=== PATIENT | male | born 1945 | race Caucasian/White ===

== ENCOUNTER → 2019-03-24 09:27 | Outpatient (BNVA) | payer MEDICARE, SELFPAY | PROVIDERS: Family Provider Family Medicine; PCP Family Medicine; Referring Provider Family Medicine; Visit Provider Specialist | DX: M17.11 Unilateral primary osteoarthritis, right knee (principal); M25.561 Pain in right knee | CPT/HCPCS: 73560; 73565 ==

== ENCOUNTER → 2019-06-21 09:24 | Outpatient (BNVA) | payer MEDICARE, SELFPAY | PROVIDERS: Family Provider Family Medicine; PCP Family Medicine; Visit Provider Specialist | DX: M25.569 Pain in unspecified knee (principal); M23.303 Other meniscus derangements, unspecified medial meniscus, right knee; M23.304 Other meniscus derangements, unspecified medial meniscus, left knee | CPT/HCPCS: 73560; 73565 ==

== ENCOUNTER → 2019-08-16 15:08 | Outpatient (BNVA) | payer MEDICARE, SELFPAY | PROVIDERS: Family Provider Family Medicine; PCP Family Medicine; Visit Provider Specialist | DX: M17.0 Bilateral primary osteoarthritis of knee (principal); Z01.812 Encounter for preprocedural laboratory examination | CPT/HCPCS: 73562; 81001; 87081 ==

== ENCOUNTER 2019-09-03 09:22 | Outpatient (CLI) | payer MEDICARE, SELFPAY ==
--- NOTE | 2019-09-03 09:47 | PC.NURSE ---
Patient identification verified with name and date of . PPE to include faceshield, N95, gown and gloves. Specimen collected, labeled and signed into lab at this time.
[2019-09-04 18:36] LABS: Coronavirus Lab Test PTC SEE REPORT
== END 2019-09-03 09:23 | disposition home or self-care (01) ==
LOC: LAB 09:22
PROVIDERS: PCP Family Medicine; Visit Provider Specialist
DX: Z11.59 Encounter for screening for other viral diseases (principal)
CPT/HCPCS: 87635

== ENCOUNTER 2019-09-07 11:05 | Observation (INO) | payer MEDICARE, SELFPAY ==
--- NOTE | 2019-09-02 11:08 | ECG_ITS ---
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 Measurements Intervals [place] Rate: 57 P: 9 MT: 154 QRS: -3 QRSD: 105 T: 50 QT: 402 QTc: 394 Interpretive Statements SINUS BRADYCARDIA MODERATE VOLTAGE CRITERIA FOR LVH, CONSIDER NORMAL VARIANT [MEETS CRITERIA IN ONE OF: R(aVL), S(V1), R(V5), R(V5/V6)+S(V1)] No previous ECG available for comparison Electronically Signed On 09-03-2019 1:37:56 CDT by Vilma Walden M.D. [id number]
[2019-09-02 11:16] VITALS: BMI 34.8
--- NOTE | 2019-09-02 11:56 | ANES.PREANE2 ---
Pre-Anesthetic Assessment Pre-Anesthetic Assessment: Height/Weight: Height 1.75 m Weight 107.048 kg Preop Diagnosis: Right knee osteoarthritis Proposed Procedure: Operation Date: 09/07/19 07:00 Proposed Procedures p Total Knee Arthroplasty/88471 M17.0(Right) - Sherrie Chen MD Familial anesthetic complications: None Social: Social History: No alcohol and No tobacco Exam: Pre-Anes Outpt Exam: alert, oriented x 3, clear to auscultation bilaterally and regular rate & rhythm Airway: Cervical ROM: WNL MP: 4 Dentition: Chipped, Partials and Full Additional comments: large neck circumference Pulmonary: Pulmonary: Sleep apnea (cpap) CV/HEM: CV/HEM: CAD (3 stents (4 yrs ago) - on baby aspirin) and HTN GI: GI: GERD Metabolic: Metabolic: DM and Morbid obesity Musc/skel: Musc/skel: OA/DJD Neuropsych: Neuropsych: None reported Anesthetic Plan: ASA status: 3 Anesthesia: General and Regional (specify below) Risk of > 500 ml blood loss (7ml/kg in children): Yes, adequate IV access and fluids planned PFSH Anesthesia PFSH: Medical History Atherosclerosis of [place] coronary artery of [place] heart without angina pectoris CHF (congestive heart failure) GERD (gastroesophageal reflux disease) Hyperlipidemia Hypertension Statin intolerance Type 2 diabetes mellitus with hyperglycemia, with long-term current use of insulin Surgical History Stented coronary artery Family History Denies family history of Diabetes CAD (coronary artery disease) Clotting disorder Dementia Hyperlipidemia Psychiatric illness Chronic kidney disease (CKD) Suicide Anesthesia complication Bleeding disorder Family history of premature coronary artery disease Lung disease Cancer Hypertension Stroke Social History Smoking and tobacco status: former smoker Alcohol intake: current Alcohol intake frequency: few times a month Household members: spouse Marital status: Current occupational status: retired Data Anesthesia Cardiac Studies: No Data to Display
[2019-09-02 15:29] LABS: Basophils # 0.1 10^3/uL (0.0-0.1); Eosinophils # 0.2 10^3/uL (0.0-0.8); Eosinophils % 3.8 %; Hematocrit 46.1 % (42.0-52.0); Hemoglobin 15.1 g/dL (11.7-16.6); Lymphocytes # 2.2 10^3/uL (0.8-4.8); Lymphocytes % 37.3 %; Mean Corpuscular HGB Conc 32.8 g/dL (30.0-36.0); Mean Corpuscular Hemoglobin 31.2 pg (28.0-34.0); Mean Corpuscular Volume 95.2 fL (80-94); Mean Platelet Volume 10.7 fL (7.4-10.4); Monocytes # 0.5 10^3/uL (0.2-0.9); Monocytes % 9.1 %; Neutrophils # 2.81 10^3/uL (1.8-7.7); Neutrophils % 47.9 %; Nucleated Red Blood Cells % 0 %; Platelet Count 325 10^3/cmm (130-400); Red Blood Count 4.84 10^6/uL (4.1-5.3); Red Cell Distribution Width 14.1 % (12.1-15.1); White Blood Count 5.9 10^3/uL (4.0-10.0)
[2019-09-07] VITALS (24 sets, daily range): BP systolic 105–160; BP diastolic 59–83; PULSE 58–94; RESP 12–18; TEMP 36.2–37.2; O2SAT 92–97
[2019-09-07] MEDS: CELEcoxib 200 mg Capsule 400 MG PO (06:28)
[2019-09-07] MEDS: sodium chloride 0.9% 1,000 ML 30 ML IV (06:29)
[2019-09-07 06:38] LABS: Glucose Point of Care 254 mg/dL (70-110)
--- NOTE | 2019-09-07 06:41 | P.ANESUD_ITS ---
Pre-Anesthetic Update Pre-Anesthetic Assessment: Date of Surgery/Procedure: 09/07/19 Preop Odilia gnosis: Right knee osteoarthritis Proposed Procedure: Operation Date: 09/07/19 07:35 Proposed Procedures p Total Knee Arthroplasty/61773 M17.0(Right) - Sherrie Chen MD Any changes to Pre-Anesthetic Assessment?: No Last Intake: Intake Last Liquid Date 09/06/19 Last Liquid Time 21:00 Last Solid Date 09/06/19 Last Solid Time 19:00 Labs Last 48hrs: Laboratory Results - last 48 hr 09/07/19 06:27 POC Glucose 254 Vitals: Temperature 97.2 F L 09/07/19 06:11 Temperature Source Temporal Artery S can 09/07/19 06:11 Pulse Rate 58 L 09/07/19 06:11 Respiratory Rate 18 09/07/19 06:11 Blood Pressure 149/83 09/07/19 06:11 Blood Pressure Li n 105 09/07/19 06:11 Pulse Oximetry 95 09/07/19 06:11 Oxygen Delivery Me thod 09/07/19 06:11 Exam: Pre-Anes Outpt Exam: alert, oriented x 3, clear to auscultation bilaterally and regular rate & rhythm Cardiac Studies: No Data to Display
--- NOTE | 2019-09-07 06:55 | W.PM.OPSUD ---
Surgery/Procedure H&P Update DATE OF PROCEDURE: September 07, 2019 DATE H&P PERFORMED: 08/16/19 H&P UPDATE INFORMATION: I have reviewed H&P completed within last 30 days, I have examined patient prior to procedure and H&P is in [facility] EMR on date indicated PREOP DIAGNOSIS: Right knee osteoarthritis PLANNED PROCEDURE: Operation Date: 09/07/19 07:35 Proposed Procedures p Total Knee Arthroplasty/74488 M17.0(Right) - hSerrie Chen MD Related Problem List Diagnoses (1) Primary osteoarthritis of right knee:
--- NOTE | 2019-09-07 07:02 | ANES.PROC ---
Anesthesia Procedures Procedure/Date: 09/07/19 Nerve Block ^: Nerve Block 1: Main Anesthesia: general anesthesia Time Out Performed: Yes Consent: requested by attending/covering physician, from patient, risks and benefits reviewed and patient agrees to proceed Nerve block location: adductor canal (R) Anesthesia monitors applied: pulse oximetry and oxygen Nerve block position: supine Anesthetic Used: ropivicaine 0.5% and with decadron (4 mg) Amount of anesthesia used (mL): 30 Ultrasound used to: recognize landmarks, visualize and ID brachial plexus, visualize and ID interscalene groove and visualize and ID femerol nerve Nerve Stimulator Used?: No Interscalene/Femoral BLK: 4 stimuplex 21 g needle used for position and inplane approach, visualize local anesthetic spread and no vascular puncture identified Injection: neg aspiration of heme Patient Tolerated Procedure: well Complications: none
[2019-09-07] MEDS: midazolam 1 mg/mL INJ 5 ML 5 MG IVP (07:03)
[2019-09-07] MEDS: insulin regular-human 100 units/1 mL 5 UNIT IV (07:19)
[2019-09-07] MEDS: vancomycin 1,000 MG SDV 1000 MG XX (08:40)
[2019-09-07] MEDS: ceFAZolin 1,000 mg SDV 1000 MG IRRIGATION ×2 (08:42)
--- NOTE | 2019-09-07 10:31 | PM.OP ---
Operative Report Date of procedure: September 07, 2019 Pre-op Diagnosis: Right knee osteoarthritis Post-op diagnosis: same Post-op Findings: Severe degenerative osteoarthritis right knee with varus deformity Procedure Done: Right total knee arthroplasty utilizing the following components: The [place] [employer] total knee system with a size 4 right posterior stabilized press-fit femoral component, a size 5 press-fit tibial component and a size 5 x 16 posterior stabilized tibial insert with an asymmetric 35 x 10 mm patella Specimens removed/disposition: Bone, disposed of Pathology: none sent Surgeon: Sherrie Chen Precision Grinder External: Umang Haley Anesthesia: General (Intubated ASA 3 with preoperative regional block) Estimated blood loss (mL): 50 Tourniquet time (min): 98 Tourniquet time: at 250 mmHg IV fluids (mL): 500 Urine output (mL): 350 Complications: None Findings: Severe DJD with complete obliteration of cartilage over medial femoral condyle Condition: stable Disposition: PACU (Then to floor for postoperative rehabilitation and pain management) Brief History: This 74-year-old man presented with complaints of severe right knee pain. He is having significant impact in her activities of daily living from her right knee. He wishes to proceed with total knee arthroplasty. Risks and complications are explained to him. Consents are signed. Questions are answered. Procedure: The patient was brought to the operating theater, and after undergoing adequate general intubated anesthesia with supplemental regional block, the right lower extremity was prepped with Dura-Prep and draped in usual fashion following placement of a tourniquet high on the leg. The leg was then draped free. Following prepping and draping, the leg was exsanguinated, and the tourniquet was elevated to 250 mmHg for a total tourniquet time of 98 minutes. Prior to elevation of the tourniquet, but following exposure of the site of surgery, a surgical pause was performed. At the time of the surgical pause, we confirmed the site and side of surgery. Additionally, we confirmed the appropriate and timely administration of preoperative antibiotics, Ancef 2 g and transexemic acid 1 g each pre and post op. The patient is consented to avoid all blood products. The availability of equipment was confirmed, and the patient's identity was verbalized as well. Following the surgical pause, an incision was made centering over the patella continuing proximally and distally as necessary to allow access to the knee joint. Dissection continued through skin and soft tissues using a scalpel. Hemostasis was obtained using electrocautery. The skin incision was followed by a median parapatellar arthrotomy. The leg was extended and the patella was everted. Following this, the leg was returned to flexed position. The distal femur was exposed and a drill hole was made in this for placement of the distal femoral jig. The distal femoral jig was set at 5? of valgus. The distal femoral cutting block was then placed in appropriate position, and an logan wing was used to confirm an appropriate amount of distal femur would be resected. The distal femoral resection was accomplished with 8 mm of bone being resected distally. After the distal femoral resection had been accomplished, the femur was measured and it measured a size 4. Medial lateral dimension also measured a size 4-5. A size 4 femoral cutting block was placed in position, and we were then able to accomplish the anterior, posterior and chamfer cuts. This jig was then removed and the notch guide was placed in position. With the notch guide in appropriate position, the notch was excised including resection of the anterior and posterior cruciate ligaments. This notch was to allow for the posterior stabilized femoral component. At this point, the femur was prepared and attention was directed to the proximal tibia. The posterior knee retractor was placed along with medial and lateral retractors. Further resection of the menisci was accomplished as we had better visualization. A complete meniscectomy was performed both medially and laterally with care being taken to protect the popliteus. Retractors were then placed so that the proximal tibia was well visualized. A drill hole was then made in the tibia for placement of the intramedullary guide. This guide was placed so that approximately 2 mm of bone would be resected from the deficient medial tibial plateau. The intramedullary guide was utilized supplemented with an extramedullary guide to assure appropriate alignment for the proximal tibial resection. The proximal tibial jig was then evaluated, pinned in position, and the proximal tibial resection was accomplished without difficulty. The jig was removed and the proximal tibia was measured. It measured a size 5. A trial reduction was accomplished with a11 mm insert. Posterior release was required both before and after trial reduction. A medial release was required as well. We increased through a size 13 mm insert to a final size 16 mm insert. We then had good balance to the knee with full extension and excellent varus valgus stability. The femoral component was placed in position for the trial reduction, and the knee was placed through range of motion. There was excellent stability with excellent varus-valgus alignment with appropriate patellar tracking. This was felt to be the appropriate size insert. There was full extension and flexion without lift off and the rotation of the tibia was marked. Alignment was checked from the hip to the ankle, and this was noted to be appropriate as well. Attention was then directed to the patella. The patella was measured with a caliper. We resected sufficient patella to leave approximately 15 mm of patella remaining. Measurements of the patella then indicated that a size asymmetric 35 mm x 10 mm was the appropriate patellar size. We then placed the jig to drill for the 3 pegs of the press-fit patella, and these drill holes were made without incident. A trial patella was then placed and the knee was placed through range of motion. The patella was noted to track nicely without evidence of subluxation. The femur was prepared for a press-fit femur by drilling 2 holes for the femoral pegs. All trial components were subsequently removed. The tibial tray was then pinned into position, and we broached the tibia for the stem of the tibial component. Subsequently, 4 drill holes were made for placement of the press-fit tibia. This was accomplished without difficulty. Care was taken to assure appropriate rotation of the tibia as well as appropriate position on the proximal tibia. The tibial tray was completely seated on the proximal tibia. Following broaching, the tibial guide was removed, and all surfaces were copiously irrigated. The surfaces were then dried and a bone plug was placed into the distal femur. Exparel was also injected at this point. The Tritanium tibia was impacted into position. The beaded femur was then impacted into position in a cementless fashion. The tibial insert was placed. The patella was pressed into position with a patellar clamp. The knee was irrigated with 20 mL of Betadine and 500 mL of normal saline, and this was allowed to remain in the knee for 3-4 minutes. This was allowed to remain in the knee for 3 full minutes. The knee was then copiously irrigated and suctioned dry. Attention was then directed to closure. Closure was accomplished with 0 Vicryl in the fascial tissues, 2-0 Monocryl was used in the subcutaneous tissues, and the skin was closed with skin bruce followed by Exofin. A sterile dressing was then placed consisting of Telfa, 4 x 4's, ABDs, sterile soft roll, and an Nelson wrap. The patient was returned the Recovery Room in a satisfactory condition. X-rays were obtained there. The patient will be discharged to the floor for postoperative rehabilitation and pain management. He'll be under observation status with plans to discharge home with home health. Associated Problem List Diagnoses (1) Primary osteoarthritis of right knee:
--- NOTE | 2019-09-07 10:39 | SUR.PHASEI ---
1037- ORAL AIRWAY OUT, SIMPLE MASK AT 10LPM, SAT 97%
--- NOTE | 2019-09-07 10:43 | XRR_ITS ---
PROCEDURE INFORMATION: Exam: XR Right Knee Exam date and time: 09/07/2019 11:00 AM Age: 74 years old Clinical indication: Condition or disease; Joint replacement status; Knee; Other complication; Right; Prior surgery; Surgery date: Post-operative (0-2 days); Additional info: Status post right total knee arthroplasty TECHNIQUE: Imaging protocol: XR Right knee. Views: 1 or 2 views. COMPARISON: CR (LOW EXM, ) 08/16/2019 3:12 PM FINDINGS: Bones/joints: No postoperative complication in the setting of arthroplasty. Anatomic alignment. Soft tissues: Soft tissue calcifications, subcutaneous emphysema, skin bruce. Vasculature: Vascular calcification. Other findings: Postoperative intra-articular air. XR/XR knee RT 1-2V 19127 IMPRESSION: No postoperative complication in the setting of arthroplasty.
[2019-09-07] MEDS: oxyCODONE 5 mg IR Tab/Cap PO ×3 (11:37→22:27)
[2019-09-07] MEDS: chlorhexidine gluconate 0.12% Btl 473 mL 30 ML MUCOUS MEM ×3 (15:47→21:20)
[2019-09-07] MEDS: calcium carbonate 500 mg Chew Tablet 1000 MG PO (18:28)
[2019-09-07] MEDS: iron polysaccharide complex 150 mg Capsule PO (18:29)
[2019-09-07] MEDS: metformin 500 mg Tablet 1000 MG PO (18:29)
[2019-09-07] MEDS: sennosides-docusate Tablet 2 TAB PO (18:29)
[2019-09-07] MEDS: CELEcoxib 200 mg Capsule PO (18:29)
[2019-09-07 21:13] LABS: Glucose Point of Care 391 mg/dL (70-110)
[2019-09-08] VITALS (9 sets, daily range): BP systolic 130–149; BP diastolic 60–79; PULSE 68–85; RESP 16–18; TEMP 36.7–37.1; O2SAT 84–96
[2019-09-08] MEDS: oxyCODONE 5 mg IR Tab/Cap PO ×4 (03:56→16:26)
[2019-09-08 04:30] LABS: Basophils % 0.1 %; Eosinophils # 0.1 10^3/uL (0.0-0.8); Hematocrit 38.6 % (42.0-52.0); Hemoglobin 13.1 g/dL (11.7-16.6); Lymphocytes # 1.7 10^3/uL (0.8-4.8); Lymphocytes % 19.7 %; Mean Corpuscular HGB Conc 33.9 g/dL (30.0-36.0); Mean Corpuscular Hemoglobin 32.4 pg (28.0-34.0); Mean Corpuscular Volume 95.5 fL (80-94); Mean Platelet Volume 9.9 fL (7.4-10.4); Monocytes % 11.7 %; Neutrophils # 5.87 10^3/uL (1.8-7.7); Neutrophils % 66.9 %; Nucleated Red Blood Cells % 0 %; Platelet Count 244 10^3/cmm (130-400); Red Blood Count 4.04 10^6/uL (4.1-5.3); Red Cell Distribution Width 14.2 % (12.1-15.1); White Blood Count 8.8 10^3/uL (4.0-10.0)
[2019-09-08 04:47] LABS: Anion Gap 16.4 (5-19); Blood Urea Nitrogen 25 mg/dL (8-23); Calcium 9.6 mg/dL (8.5-10.5); Carbon Dioxide 27 mmol/L (22-29); Chloride 95 mmol/L (98-107); Glucose 153 mg/dL (65-115); Osmolality Calculated 280 mOsm/kg (285-295); Potassium 3.4 mmol/L (3.5-5.1); Sodium 135 mmol/L (136-145)
[2019-09-08] MEDS: CELEcoxib 200 mg Capsule PO (06:14)
[2019-09-08] MEDS: ondansetron 2 mg/ML SDV 2 mL 4 MG IVP (06:21)
[2019-09-08 06:27] LABS: Glucose Point of Care 205 mg/dL (70-110)
--- NOTE | 2019-09-08 06:45 | ECG_ITS ---
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 Measurements Intervals [place] Rate: 78 P: 1 MN: 186 QRS: -6 QRSD: 114 T: 34 QT: 378 QTc: 433 Interpretive Statements SINUS RHYTHM INCOMPLETE RIGHT BUNDLE BRANCH BLOCK [90+ ms QRS DURATION, TERMINAL R IN V1/V2, 40+ ms S IN I/aVL/V4/V5/V6] VOLTAGE CRITERIA FOR LVH [MEETS CRITERIA IN ONE OF: R(aVL), S(V1), R(V5), R(V5/V6)+S(V1)] NONSPECIFIC ST & T-WAVE ABNORMALITY Compared to ECG 09/02/2019 11:29:59 Incomplete right bundle-branch block now present T-wave abnormality now present Sinus bradycardia no longer present Electronically Signed On 09-08-2019 20:30:14 CDT by Vilma Walden M.D. [id number]
[2019-09-08 07:38] LABS: Troponin T (5th) Once 16 ng/L (0-15)
--- NOTE | 2019-09-08 07:48 | XR_ITS ---
WS: [id number] PORTABLE CHEST HISTORY: chest pain COMPARISON: None available. Slight elevation of the RIGHT hemidiaphragm. Lungs are clear. Normal vasculature. No pleural effusion or pneumothorax. Cardiac size: Mildly enlarged cardiac silhouette. Mediastinum/Aorta: Mild atherosclerosis aorta. No osseous abnormality seen. XR/XR chest 1V portable 13230 IMPRESSION: Ectatic thoracic aorta. No acute cardiopulmonary disease.
[2019-09-08] MEDS: iron polysaccharide complex 150 mg Capsule PO (08:26)
[2019-09-08 08:41] LABS: Troponin(5th) Baseline 17 ng/L (0-15)
[2019-09-08] MEDS: atenolol 50 mg Tablet 25 MG PO (08:57)
[2019-09-08] MEDS: multivitamin therapeutic Tablet 1 TAB PO (08:57)
[2019-09-08] MEDS: chlorthalidone 25 mg Tablet PO (08:57)
[2019-09-08] MEDS: losartan 50 mg Tablet 100 MG PO (08:57)
[2019-09-08] MEDS: metformin 500 mg Tablet 1000 MG PO (08:57)
[2019-09-08] MEDS: cholecalciferol (vitamin D3) 1,000 unit Tablet 1000 UNIT PO ×2 (08:57→09:05)
[2019-09-08] MEDS: aspirin 325 mg EC Tablet PO (08:58)
[2019-09-08] MEDS: insulin glargine 100 units/1 mL 40 UNIT SUBCUT (09:04)
[2019-09-08] MEDS: sennosides-docusate Tablet 2 TAB PO (09:06)
[2019-09-08] MEDS: chlorhexidine gluconate 0.12% Btl 473 mL 30 ML MUCOUS MEM ×2 (09:06→12:26)
[2019-09-08] MEDS: calcium carbonate 500 mg Chew Tablet 1000 MG PO (09:09)
--- NOTE | 2019-09-08 09:47 | ECG_ITS ---
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 Measurements Intervals [place] Rate: 89 P: -26 NM: 150 QRS: 5 QRSD: 106 T: 51 QT: 357 QTc: 436 Interpretive Statements SINUS RHYTHM INCOMPLETE RIGHT BUNDLE BRANCH BLOCK [90+ ms QRS DURATION, TERMINAL R IN V1/V2, 40+ ms S IN I/aVL/V4/V5/V6] MODERATE VOLTAGE CRITERIA FOR LVH, CONSIDER NORMAL VARIANT [MEETS CRITERIA IN ONE OF: R(aVL), S(V1), R(V5), R(V5/V6)+S(V1)] NONSPECIFIC ST & T-WAVE ABNORMALITY INTERPRETATION BASED ON A DEFAULT AGE OF 40 YEARS Compared to ECG 09/08/2019 07:04:29 No significant changes Electronically Signed On 09-08-2019 20:37:58 CDT by Vilma Walden M.D. [id number]
--- NOTE | 2019-09-08 10:05 | P.CONIM_ITS ---
Providers/Reason For Consult Consulting Physican/Specialty*: Carie Melendez, hospitalist Reason for Consult*: Chest pain Requesting Physcian: Dr. Sherrie Chen, orthopedic surgery Attending Physician: Sherrie Chen MD Primary Care Provider: Maria C Ramachandran DO History of Present Illness History of Present Illness Dennis Blankenship is a 74 year old male with a past medical history of hypertension, coronary artery disease, obstructive sleep apnea, hyperlipidemia that presented to the hospital for total knee arthroplasty. Patient reports that he had been doing well prior to surgery with no concerns. He stated that he follows with cardiology in the outpatient setting, last visit was 07/21/2019 for preoperative visit. Had a negative stress test in the fall 2018. Has not had any chest pain with exertion, no dyspnea on exertion. Patient reported that he was laying in bed this morning when he began having some discomfort in the center of his chest that was slightly improved with belching, he stated that he also had a burning s ensation. He reports that he did have some discomfort between his shoulder blades at the same time. He did not have any worsening with exertion, no other aggravating or alleviating factors. He states that he has had some increased gas. Denies any abdominal pain or bloating, reported that he felt that he needed to have a bowel movement this morning but has not, has been passing some flatus. He denies any lightheadedness or dizziness, no diaphoresis. Patient reports having a history of coronary artery disease but is never had a heart attack. Patient denies any recent illness, no fevers or chills Review of Systems Const: Denies: fever(s) or chills Eyes: Denies: change in vision ENMT: Denies: nasal congestion Card: Reports: chest pain; Denies: palpitations or edema Resp: Denies: dyspnea, productive cough or hemoptysis GI: Reports: heartburn and belching; Denies: abdominal pain, nausea, vomiting, diarrhea, constipation, hematochezia or melena : Denies: dysuria or hematuria Musc: Reports: extremity pain (postoperative); Denies: muscle cramps Skin/Breast: Denies: rash or new lesions Neuro: Denies: headache(s) or dizziness Psych: Denies: anxiety or depression Endo: Denies: polyuria or hot flashes Leonard/Lymph: Denies: easy bruising or easy bleeding Meds/Allergies Home Medications and Allergies Home Medications Medication Instructions Recorded Confirmed Last Taken Type allopurinol 300 mg tablet 300 mg PO DAILY 03/24/19 09/07/19 09/05/19 History aspirin 81 mg tablet,delayed 81 mg PO DAILY 03/24/19 09/07/19 09/01/19 History release chlorthalidone 25 mg tablet 25 mg PO DAILY 03/24/19 09/07/19 09/06/19 History cholecalciferol (vitamin D3) 25 1,000 unit PO DAILY 03/24/19 09/07/19 09/06/19 History mcg (1,000 unit) capsule insulin glargine 100 unit/mL (3 40 unit SUBCUT DAILY 03/24/19 08/17/19 09/06/19 18:00 History mL) subcutaneous pen 1/2 losartan 100 mg tablet 100 mg PO DAILY 03/24/19 09/07/19 09/06/19 20:00 History metformin 1,000 mg tablet 1,000 mg PO BID 03/24/19 09/07/19 09/06/19 07:00 History multivitamin with iron 1 tab PO DAILY 03/24/19 09/07/19 09/06/19 History nitroglycerin 0.4 mg sublingual 0.4 mg SUBLINGUAL Q5M PRN 03/24/19 09/02/19 Unknown History tablet Diabetic Shoes #1 each 03/30/19 08/16/19 Unknown Rx atenolol 50 mg tablet 25 mg PO DAILY tab 05/27/19 09/07/19 09/06/19 21:00 History empagliflozin 25 mg tablet 25 mg PO DAILY 08/17/19 09/07/19 09/06/19 07:00 History Allergies Allergy/AdvReac Type Severity Reaction Status Date / Time amlodipine Allergy swelling Verified 08/17/19 13:21 fenofibrate Allergy muscle pain Verified 08/17/19 13:21 lisinopril Allergy cough Verified 08/17/19 13:21 Ulygoiy-Vsj-Xpa Reductase Allergy ADV-Weaknes Verified 09/07/19 06:08 Inhibitor s Current Medications Current Medications Generic Name Dose Route Start Last Admin Trade Name Freq PRN Reason Stop Dose Admin Aspirin 325 mg 09/08/19 09:00 09/08/19 08:58 Aspirin Ec PO 325 mg DAILY JULIO C Administration Atenolol 25 mg 09/08/19 09:00 09/08/19 08:57 Tenormin PO 25 mg DAILY JULIO C Administration Calcium Carbonate 1,000 mg 09/07/19 18:00 09/08/19 09:09 Tums PO 1,000 mg BID JULIO C Administration Celecoxib 200 mg 09/07/19 18:30 09/08/19 06:14 Celebrex PO 200 mg Q12H JULIO C Administration Chlorhexidine Gluconate 30 ml 09/07/19 13:00 09/08/19 09:06 Perigard MUCOUS MEM 30 ml QID JULIO C Administration Chlorthalidone 25 mg 09/08/19 09:00 09/08/19 08:57 Thalitone PO 25 mg DAILY [facility] Administration Insulin Aspart 0 unit 09/08/19 08:00 09/08/19 08:53 Novolog SUBCUT 6 unit WM&BEDTIME [facility] Administration Protocol Insulin Glargine 40 unit 09/08/19 09:00 09/08/19 09:04 Lantus SUBCUT 40 unit DAILY [facility] Administration Losartan Potassium 100 mg 09/08/19 09:00 09/08/19 08:57 Cozaar PO 100 mg DAILY [facility] Administration Metformin HCl 1,000 mg 09/07/19 18:00 09/08/19 08:57 Glucophage PO 1,000 mg BID [facility] Administration Multivitamins Therapeutic 1 tab 09/08/19 09:00 09/08/19 08:57 Multivitamin Tab PO 1 tab DAILY [facility] Administration Mupirocin 1 applic 09/07/19 18:00 09/08/19 09:05 Bactroban NASAL 09/12/19 17:59 Not Given BID [facility] Protocol Non-Formulary Medication 25 mg 09/08/19 09:00 09/08/19 09:05 Empagliflozin [Jardiance] PO Not Given DAILY [facility] Ondansetron HCl 4 mg 09/07/19 11:18 09/08/19 06:21 Zofran IVP 4 mg Q6H PRN Administration NAUSEA AND VOMITING Oxycodone HCl 5 mg 09/07/19 11:18 09/08/19 08:25 Oxycodone Ir PO 5 mg Q4H PRN Administration MODERATE PAIN Polysaccharide Iron Complex 150 mg 09/07/19 18:00 09/08/19 08:26 Ferrex PO 150 mg BIDWM JULIO C Administration Senna/Docusate Sodium 2 tab 09/07/19 18:00 09/08/19 09:06 Senna-S PO 2 tab BID JULIO C Administration Vitamin D 1,000 unit 09/08/19 09:00 09/08/19 08:57 Vitamin D3 PO 1,000 unit DAILY JULIO C Administration Vitamin D 1,000 unit 09/08/19 09:00 09/08/19 09:05 Vitamin D3 PO 1,000 unit DAILY JULIO C Administration PFSH Acute PFSH: Medical History (Updated 09/08/19 @ 10:14 by Carie Melendez DO) Atherosclerosis of [place] coronary artery of [place] heart without angina pectoris CHF (congestive heart failure) GERD (gastroesophageal reflux disease) Hyperlipidemia Hypertension Statin intolerance Type 2 diabetes mellitus with hyperglycemia, with long-term current use of insulin Surgical History (Updated 09/08/19 @ 10:11 by Carie Melendez DO) History of total right knee replacement Performed on 09/07/[address] April Chirinos coronary artery Family History Denies family history of Diabetes CAD (coronary artery disease) Clotting disorder Dementia Hyperlipidemia Psychiatric illness Chronic kidney disease (CKD) Suicide Anesthesia complication Bleeding disorder Family history of premature coronary artery disease Lung disease Cancer Hypertension Stroke Social History Smoking and tobacco status: former smoker Alcohol intake: current Alcohol intake frequency: few times a month Household members: spouse Marital status: Current occupational status: retired Vitals/I&O/Wt Last Vital Signs Temp 98.1 F 09/08/19 07:12 Pulse 77 09/08/19 07:12 Resp 16 09/08/19 08:25 BP 133/75 09/08/19 08:57 Pulse Ox 96 09/08/19 07:12 09/07/19 09/08/19 09/08/19 22:59 06:59 14:59 Intake Total 990 / 2000 300 / 2300 240 / 240 Output Total 1000 / 1750 1050 / 2800 Balance -10 / 250 -750 / -500 240 / 240 Physical Exam Const: COMMON NORMALS: patient oriented x3 and alert GENERAL APPEARANCE: cooperative ORIENTATION/CONSCIOUSNESS: Yes awake, Yes oriented to person, Yes oriented to place and Yes oriented to time HENMT: COMMON NORMALS: normocephalic and atraumatic HEAD & SCALP: normocephalic and atraumatic Eye: COMMON NORMALS: Equal, round and reactive pupils present PUPIL: Yes Equal, round and reactive pupils present Neck/C-Spine: COMMON NORMALS: supple GENERAL: Yes normal visual inspection Resp: COMMON NORMALS: normal respiratory effort and clear to auscultation bilaterally EFFORT & INSPECTION: Yes able to speak in complete sentences AUSCULTATION: clear to auscultation bilaterally, no rhonchi and no wheezes Cardio: COMMON NORMALS: regular rate, regular rhythm and No murmurs present (Cardio) RATE: regular rate RHYTHM: regular rhythm GI: COMMON NORMALS: Soft to palpation and non-tender INSPECTION: No abdominal distension AUSCULTATION: Yes normoactive bowel sounds PALPATION: Yes Soft to palpation Extremity: COMMON NORMALS: no clubbing, cyanosis or edema and no calf tenderness NARRATIVE EXTREMITY EXAM: Postoperative dressing in place in the right lower extremity negative Homans sign bilaterally Neuro: COMMON NORMALS: patient oriented x3, CN's II-XII intact bilaterally, moves all extremities and no focal motor deficits SENSORIUM/ORIENTATION: Yes alert, Yes oriented to person, Yes oriented to place and Yes oriented to time SPEECH: speech normal Psych: COMMON NORMALS: mental status grossly normal and cooperative Skin: COMMON NORMALS: no rashes or lesions noted GENERAL SKIN EXAM: no rashes or lesions noted Urinary Catheter Management^: F: Cath Placed During This Visit: yes, but has since been removed by the nurse Reason for Continuing Indwelling Catheter: Decision to DC Catheter Urinary Catheter Date of Insertion: 09/07/19 Urinary Catheter Time of Insertion: 08:00 Date Urinary Catheter Removed: 09/08/19 Time Urinary Catheter Discontinued: 07:00 A&P Assessment and plan (1) Chest pain: Atypical chest pain Due to history of coronary artery disease we will continue close monitoring on telemetry with serial EKG and troponin. Will further evaluate as noted above and with chest x-ray but believes symptoms are related to GERD. Will give GI cocktail and started on PPI Status: Acute (2) Primary osteoarthritis of right knee: Postop day #1 from right total knee arthroplasty, will follow with orthopedic surgery Status: Acute (3) Hypertension: Blood pressures controlled at this time, will continue on home losartan, atenolol Status: Acute (4) Hyperlipidemia: Patient has a history of statin intolerance Status: Acute (5) Type 2 diabetes mellitus with hyperglycemia, with long-term current use of insulin: Blood glucose within normal limits at this time, will continue with sliding scale insulin, metformin, Jardiance Status: Acute (6) Atherosclerosis of [place] coronary artery of [place] heart without angina pectoris: Followed in the outpatient setting by Dr. cOampo Last stress test from fall 2018 reviewed Patient has a history of stent placement x2 performed at an outside facility in [place] Continue with further work-up and monitoring on telemetry as noted above Patient has atypical symptoms which are more related to GI etiology Status: Acute Additional A&P Information DVT prophylaxis: Lovenox Diet: Carbohydrate consistent CODE STATUS: Full code Consult Attestations Medical Necessity Statement: Patient requires hospitalization status post total knee arthroplasty with onset of chest pain in the postoperative setting Coding Level of Care Code Acute Heading Repairer for Rosey Snow Diagnoses Chest pain R07.9 Primary osteoarthritis of right knee M17.11 Hypertension I10 Hyperlipidemia E78.5 Type 2 diabetes mellitus with hyperglycemia, with long-term current use of insulin E11.65; Z79.4 Atherosclerosis of [place] coronary artery of [place] heart without angina pectoris I25.10
--- NOTE | 2019-09-08 11:04 | PC.CHAP ---
Pastoral Care Encounter/Spiritual Assessment Type of Contact [] Declined door tender visit [] Patient/Family/Request visit [] Outpatient visit [] Follow-up visit [] Physician referral [] Code/Alert [x] Routine visit [] Staff referral [] Actively dying [] Patient sleeping [] Family support [] [] Out of room [] Palliative care [] [] Receiving care in room [] Pre-surgical visit [] Trauma [] Long length of stay [] ICU visit [] Other: Relational/Emotional Strength [] Patient feels connected with others/family/visitors/staff [] Distress [] Loneliness/isolation [] Abandonment Spirituality of Patient [] Person of Charlene [] Attends Christianity of their Charlene [] Believes in Prayer [] Reads Bible or Evangelical materials [] There are Spiritual issues to be addressed Intellectual Property Manager Interventions [] Prayer [] Active listening [] Non-anxious presence [] Spiritual/emotional support [] Crisis/trauma care [] Spiritual counseling [] Bereavement support [] Provided bereavement packet [] Provided Bible/devotional materials [] Provided toy/stuffed animal, coloring book to patient or family member [] Provided Communion [] Anointing/[place] [] Salvation [x] Completed spiritual assessment [] Other: Impact on Illness or Injury [] Angry [] Fearful [] Anxious [] Often cries [] Exhaustion [] Unable to work [] Unable to attend taoist [] Unable to walk/stand [] Unable to read [] Unable to drive [] Unable to eat/drink [] Unable to sleep [] Unable to be with family [] Patient intubated [] Other: Summary Patient resting well, because of charlene door tender unable to pray with patient. Time spent with patient 10 min
[2019-09-08 11:10] LABS: Glucose Point of Care 335 mg/dL (70-110)
[2019-09-08] MEDS: pantoprazole DR 40 mg Tablet PO (11:24)
[2019-09-08] MEDS: potassium chloride ER 10 mEq Tablet 20 MEQ PO (11:36)
[2019-09-08] MEDS: enoxaparin 40 mg/0.4 mL Syringe SUBCUT (12:24)
[2019-09-08 12:26] LABS: Troponin 5 2HR 17.03 ng/L (0-15); Troponin 5 2HR Delta 0.03 ABS# (0-10)
--- NOTE | 2019-09-08 13:47 | ECG_ITS ---
[facility] Test Date: 2019-09-08 Pat Name: Dennis Blankenship Department: Room: 266 Gender: Male Proj Mgr: : 1945 Requested By: Carie Melendez Order Number: [id number] Miles MD: Vilma Walden M.D. Measurements Intervals [place] Rate: 78 P: -17 IA: 156 QRS: 2 QRSD: 105 T: 61 QT: 360 QTc: 410 Interpretive Statements SINUS RHYTHM MODERATE VOLTAGE CRITERIA FOR LVH, CONSIDER NORMAL VARIANT [MEETS CRITERIA IN ONE OF: R(aVL), S(V1), R(V5), R(V5/V6)+S(V1)] NONSPECIFIC T-WAVE ABNORMALITY Compared to ECG 09/08/2019 10:25:10 Incomplete right bundle-branch block no longer present T-wave abnormality still present Electronically Signed On 09-08-2019 20:38:55 CDT by Vilma Walden M.D. [id number]
[2019-09-08] MEDS: acetaminophen 500 mg Tablet 1000 MG PO (14:30)
[2019-09-08 15:28] LABS: Troponin 5 6HR 18.19 ng/L (0-15); Troponin 5 6HR Delta 1.19 ng/L (0-12)
--- NOTE | 2019-09-08 16:33 | PM.DCS ---
Discharge Providers Date of Admission: 09/07/19 11:05 Date of Discharge: September 08, 2019 Attending Provider at Admission: Sherrie Chen MD Attending Provider at Discharge: Sherrie Chen MD Primary Care Provider: Maria C Ramachandran DO Diagnoses at Discharge Discharge Diagnosis (1) Primary osteoarthritis of right knee: Status: Acute (2) Chest pain: Status: Resolved (3) Hypertension: (4) Hyperlipidemia: (5) Type 2 diabetes mellitus with hyperglycemia, with long-term current use of insulin: (6) Atherosclerosis of [place] coronary artery of [place] heart without angina pectoris: Reason for Visit Reason for Visit: Right osteoarthritis knee Hospital Course Hospital Course: This 74-year-old gentleman was admitted for same-day surgery on September 06. He underwent an uneventful right total knee arthroplasty. He was admitted as an observation patient postoperatively to initiate physical therapy, assess safety of the patient at home, and address pain management issues. On the first postoperative day, the patient had a diaphoretic event. He was subsequently evaluated by the medical service to assure this was noncardiac in nature. It was determined that it was likely GI rather than cardiac. Therefore, after discussion with the hospitalist, decision was made to discharge the patient home on the first postoperative day. He was felt to be safe with his activities of daily living. Discharge Summary: Patient's hospitalization was associated with a diagnosis of right knee osteoarthritis and the following procedure was performed: Right total knee arthroplasty utilizing the following components: The Sasha Triathlon total knee system with a size 4 right posterior stabilized press-fit femoral component, a size 5 press-fit tibial component and a size 5 x 16 posterior stabilized tibial insert with an asymmetric 35 x 10 mm patella. The patient was admitted as an observation patient on September 06 and discharged to home on September 07 with home health and home physical therapy. Physical Exam Const: COMMON NORMALS: no acute distress, average body habitus, patient oriented x3 and alert GENERAL APPEARANCE: cooperative and comfortable ORIENTATION/CONSCIOUSNESS: Yes awake HENMT: COMMON NORMALS: normocephalic and atraumatic HEAD & SCALP: normocephalic and atraumatic Eye: GENERAL EYE: appearance normal, both eyes and all related structures Chest: COMMONS NORMALS: normal inspection of the chest Resp: COMMON NORMALS: normal respiratory effort EFFORT & INSPECTION: Yes able to speak in complete sentences and Yes symmetric chest movement Extremity: RIGHT LOWER EXTREMITY: Yes knee joint Right knee: Yes inspection (The incision is benign. There is minimal to no swelling.), Yes palpation (There is some tenderness to palpation but it is minimal.), Yes ROM (Decreased as expected following total knee arthroplasty. Extension is full.) and Yes neurovascular exam (Intact with no evidence of DVT.) Neuro: COMMON NORMALS: patient oriented x3 SENSORIUM/ORIENTATION: Yes alert Psych: COMMON NORMALS: mental status grossly normal APPEARANCE: Yes grossly normal ATTITUDE: Yes calm and Yes engaged ATTENTION/CONCENTRATION: Yes attention grossly intact Skin: COMMON NORMALS: no rashes or lesions noted GENERAL SKIN EXAM: no rashes or lesions noted Urinary Catheter Management^: F: Cath Placed During This Visit: yes, but has since been removed by the nurse Reason for Continuing Indwelling Catheter: Decision to DC Catheter Urinary Catheter Date of Insertion: 09/07/19 Urinary Catheter Time of Insertion: 08:00 Date Urinary Catheter Removed: 09/08/19 Time Urinary Catheter Discontinued: 07:00 Discharge Data Data Completed and Pending: Completed Studies During Hospitalization Category Date Time Status XR chest 1V adama ble [id number] Urgent Exams 09/08/19 07:48 Completed XR knee RT 1-2V 7 3560 Stat Exams 09/07/19 10:43 Completed Pending at discharge Category Date Time Status Comprehensive Met abolic Panel Routi ne Lab 09/02/19 11:05 Uncollected Urinalysis Routin e Lab 09/02/19 11:05 Uncollected Labs from last 24 hours 09/08/19 09/08/19 09/08/19 14:22 11:15 10:43 WBC RBC Hgb Hct MCV MCH MCHC RDW Plt Count MPV Neut % (Auto) Lymph % (Auto) [place] % (Auto) Eos % (Auto) Baso % (Auto) Neut # (Auto) Lymph # (Auto) [place] # (Auto) Eos # (Auto) Baso # (Auto) Nucleated RBC % (a uto) Nucleated RBCs # Sodium Potassium Chloride Carbon Dioxide Anion Gap BUN Creatinine Glucose POC Glucose 335 Calculated Osmolal ity Calcium Troponin T Gen 5 n g/L Troponin T Baselin e Troponin T 120 Min [place] 17.03 H Delta Troponin T 0.03 Troponin T Hi Sens 6Hr 18.19 H Troponin T Hi Sens 6Hr Delta 1.19 09/08/19 09/08/19 09/08/19 08:05 07:18 06:21 WBC RBC Hgb Hct MCV MCH MCHC RDW Plt Count MPV Neut % (Auto) Lymph % (Auto) [place] % (Auto) Eos % (Auto) Baso % (Auto) Neut # (Auto) Lymph # (Auto) [place] # (Auto) Eos # (Auto) Baso # (Auto) Nucleated RBC % (a uto) Nucleated RBCs # Sodium Potassium Chloride Carbon Dioxide Anion Gap BUN Creatinine Glucose POC Glucose 205 Calculated Osmolal ity Calcium Troponin T Gen 5 n g/L 16 H Troponin T Baselin e 17 H Troponin T 120 Min [place] Delta Troponin T Troponin T Hi Sens 6Hr Troponin T Hi Sens 6Hr Delta 09/08/19 09/08/19 09/07/19 04:05 04:05 20:56 WBC 8.8 RBC 4.04 L Hgb 13.1 Hct 38.6 L MCV 95.5 H MCH 32.4 MCHC 33.9 RDW 14.2 Plt Count 244 MPV 9.9 Neut % (Auto) 66.9 Lymph % (Auto) 19.7 [place] % (Auto) 11.7 Eos % (Auto) 1.0 Baso % (Auto) 0.1 Neut # (Auto) 5.87 Lymph # (Auto) 1.7 [place] # (Auto) 1.0 H Eos # (Auto) 0.1 Baso # (Auto) 0.0 Nucleated RBC % (a uto) 0 Nucleated RBCs # 0.0 Sodium 135 L Potassium 3.4 L Chloride 95 L Carbon Dioxide 27 Anion Gap 16.4 BUN 25 H Creatinine 1.1 Glucose 153 H POC Glucose 391 Calculated Osmolal ity 280 L Calcium 9.6 Troponin T Gen 5 n g/L Troponin T Baselin e Troponin T 120 Min [place] Delta Troponin T Troponin T Hi Sens 6Hr Troponin T Hi Sens 6Hr Delta Vitals: Last Vital Signs Temp 98.0 F 09/08/19 10:41 Pulse 85 09/08/19 10:41 Resp 16 09/08/19 16:26 BP 143/79 09/08/19 10:41 Pulse Ox 84 L 09/08/19 16:26 Discharge Plan Discharge Patient Disposition: Home Health Service Condition: Stable Prescriptions: New celecoxib 200 mg Capsule 200 mg PO Q12H Qty: 60 RF: 0 acetaminophen 500 mg Tablet 1,000 mg PO Q8H 15 Days Qty: 90 RF: 0 enoxaparin 40 mg/0.4 mL syringe 40 mg SUBCUT Q24H 14 Days Qty: 5.6 RF: 0 Continued losartan 100 mg tablet 100 mg PO DAILY RF: 0 allopurinol 300 mg tablet 300 mg PO DAILY RF: 0 multivitamin with iron 1 tab PO DAILY RF: 0 Lantus Solostar U-100 Insulin 100 unit/mL (3 mL) insulin pen 40 unit SUBCUT DAILY RF: 0 chlorthalidone 25 mg tablet 25 mg PO DAILY RF: 0 metformin 1,000 mg tablet 1,000 mg PO BID RF: 0 cholecalciferol (vitamin D3) 25 mcg (1,000 unit) capsule 1,000 unit PO DAILY RF: 0 nitroglycerin [Nitrostat] 0.4 mg tablet, sublingual 0.4 mg SUBLINGUAL Q5M PRN (Reason: Chest Pain) RF: 0 atenolol 50 mg tablet 25 mg PO DAILY RF: 0 Jardiance 25 mg tablet 25 mg PO DAILY RF: 0 (DME) Diabetic Shoes Qty: 1 RF: 0 Held aspirin 81 mg tablet,delayed release (DR/EC) 81 mg PO DAILY RF: 0 Hold Instructions: Resume on 10/09/19. Resume after full strength aspirin for 30 days is completed Discharge Orders: Discharge Order (Routine); Ordered 09/08/19 Ordered By: Sherrie Chen Other Ambulatory Orders: DME: Walker (Order) Location: None Selected Ordered By: Sherrie Chen DME: Walker (Order) Location: None Selected Ordered By: Sherrie Chen Referrals: [facility] [Outside] Sherrie Chen MD [Physician] - 09/23/19 9:45 am Maria C Ramachandran DO [Primary Care Provider] - 09/14/19 1:00 pm Discharge Diet: Advance as tolerated and Usual diet Discharge Activity: Increase activity as tolerated, Use walker/crutches as instructed and As per PT/OT instructions Patient Instructions: Chest Pain - Noncardiac, Enoxaparin (Injection), Celecoxib (By mouth), Osteoarthritis (DC), Chest Pain Stoplight Activity Restrictions/Additional Instructions: Ice and elevation to right lower extremity. Weight-bear as tolerated. Maintain dressing as needed. Discharge Date/Time: 09/08/19 17:00 Discharge Attestations Time Spent in Discharge Care*: greater than 30 min Specific Discharge Activities: Specific discharge activities: discussing with pcp/other providers, discussing with correctional casework specialist/social workers/dc planners and documenting/other paperwork Quality Metrics Clinical Quality Measures During this hospital stay, did patient experience: None Coding Level of Care Code Acute Locker Room Supervisor for [place] Fwd Diagnoses Primary osteoarthritis of right knee M17.11 Chest pain R07.9 Hypertension I10 Hyperlipidemia E78.5 Type 2 diabetes mellitus with hyperglycemia, with long-term current use of insulin E11.65; Z79.4 Atherosclerosis of [place] coronary artery of [place] heart without angina pectoris I25.10
--- NOTE | 2019-09-08 17:00 | PC.NURSE ---
Reviewed patient discharge with patient and his at this time. Patient verbalized understanding of follow up appointments and prescription use. Patient is A&Ox3. Respirations even and non-labored on room air. Patient wheel chaired to his private car
== END 2019-09-08 17:00 | disposition home health service (06) ==
LOC: MEDSURG 11:11
PROVIDERS: Family Medicine; Admitting Provider Specialist; PCP Family Medicine; Visit Provider Specialist
PROC: (CPT 27447; principal; 2019-09-07 07:35)
DX: M17.11 Unilateral primary osteoarthritis, right knee (principal); R07.9 Chest pain, unspecified; E78.5 Hyperlipidemia, unspecified; E11.65 Type 2 diabetes mellitus with hyperglycemia; I25.10 Atherosclerotic heart disease of native coronary artery without angina pectoris; Z79.4 Long term (current) use of insulin; Z79.82 Long term (current) use of aspirin; I11.0 Hypertensive heart disease with heart failure; I50.9 Heart failure, unspecified; K21.9 Gastro-esophageal reflux disease without esophagitis; Z87.891 Personal history of nicotine dependence; E66.01 Morbid (severe) obesity due to excess calories; Z68.34 Body mass index [BMI] 34.0-34.9, adult; Z95.5 Presence of coronary angioplasty implant and graft
CPT/HCPCS: 27447; 12345; 36415; 36416; 51702; 71045; 73560; 80048; 82962; 84484; 85025; 93005; 96365; 96366; 96372; 96374; 96375; 97110; 97116; 97161; 97166; 97530; C1776; C9290; G0378; J0131; J0690; J1100; J1650; J1815 ×2; J2250; J2405; J2704; J2795; J3010; J3370; J3490; J7030

== ENCOUNTER → 2019-09-23 09:48 | Outpatient (BNVA) | payer MEDICARE, SELFPAY | PROVIDERS: PCP Family Medicine; Visit Provider Specialist | DX: M17.11 Unilateral primary osteoarthritis, right knee (principal); Z96.651 Presence of right artificial knee joint; Z47.1 Aftercare following joint replacement surgery | CPT/HCPCS: 73560; 73565 ==

== ENCOUNTER 2019-10-20 16:19 | Outpatient (CLI) | payer MEDICARE, SELFPAY ==
--- NOTE | 2019-10-20 | USCV_ITS ---
Dennis Blankenship Age: 74 Gender: M : 1945 Exam Date: 10/20/2019 16:53 Ordering Phys: Luzma Nugent Technologist: Janet Leger [place] [facility] [place]: [place] HISTORY: Lower extremity edema. PROCEDURES: Venous duplex imaging was performed in only the right lower extremity. The following venous structures were evaluated: common femoral vein, profunda vein, proximal portion of the greater saphenous vein, superficial femoral vein, and the popliteal vein. In addition, the posterior tibial and peroneal trunk were evaluated. Serial compression, augmentation maneuvers, and spectral Doppler flow evaluation were performed. FINDINGS: Normal 2-D Doppler and augmentation and compressibility throughout the lower extremity venous structures. Additional imaging through the proximal calf veins also reveals no thrombus. Limited evaluation of the greater saphenous vein is patent with no thrombus. CONCLUSIONS No DVT right lower extremity. Dr. Danette Fields DO (Electronically Signed) Final Date: 21 October 2019 15:53 S
== END 2019-10-20 16:20 | disposition home or self-care (01) ==
LOC: RAD 16:23
PROVIDERS: PCP Family Medicine; Visit Provider Registered Nurse
DX: Z96.651 Presence of right artificial knee joint (principal); R60.0 Localized edema
CPT/HCPCS: 93971

== ENCOUNTER → 2019-10-27 09:14 | Outpatient (BNVA) | payer MEDICARE, SELFPAY | PROVIDERS: PCP Family Medicine; Visit Provider Specialist | DX: Z96.651 Presence of right artificial knee joint (principal); Z47.1 Aftercare following joint replacement surgery | CPT/HCPCS: 73560; 73565 ==

== ENCOUNTER 2019-10-28 14:06 | Outpatient (RCR) | payer MEDICARE, SELFPAY | END 2019-11-17 23:59 | disposition home or self-care (01) | LOC: SPT 14:06 | PROVIDERS: PCP Family Medicine; Referring Provider Specialist; Visit Provider Specialist | DX: Z47.1 Aftercare following joint replacement surgery (principal); Z96.651 Presence of right artificial knee joint | CPT/HCPCS: 97110; 97140; 97161 ==

== ENCOUNTER 2019-11-19 16:59 | Outpatient (RCR) | payer MEDICARE, SELFPAY | END 2019-12-13 16:40 | disposition home or self-care (01) | LOC: SPT 16:59 | PROVIDERS: PCP Family Medicine; Referring Provider Specialist; Visit Provider Specialist | DX: Z47.1 Aftercare following joint replacement surgery (principal); Z96.651 Presence of right artificial knee joint | CPT/HCPCS: 97110 ==

== ENCOUNTER → 2019-12-29 08:52 | Outpatient (BNVA) | payer MEDICARE, SELFPAY | PROVIDERS: PCP Family Medicine; Visit Provider Specialist | DX: M17.11 Unilateral primary osteoarthritis, right knee (principal); Z96.651 Presence of right artificial knee joint | CPT/HCPCS: 73560; 73565 ==

== ENCOUNTER → 2020-03-10 10:19 | Outpatient (BNVA) | payer MEDICARE, SELFPAY | PROVIDERS: PCP Family Medicine; Referring Provider Registered Nurse; Visit Provider Internal Medicine | DX: E11.22 Type 2 diabetes mellitus with diabetic chronic kidney disease (principal); N18.30 Chronic kidney disease, stage 3 unspecified; E11.40 Type 2 diabetes mellitus with diabetic neuropathy, unspecified; E11.65 Type 2 diabetes mellitus with hyperglycemia; Z79.4 Long term (current) use of insulin; E78.2 Mixed hyperlipidemia | CPT/HCPCS: 99205 ==

== ENCOUNTER → 2020-03-29 10:38 | Outpatient (BNVA) | payer MEDICARE, SELFPAY | PROVIDERS: PCP Family Medicine; Visit Provider Specialist | DX: Z47.1 Aftercare following joint replacement surgery (principal); M17.0 Bilateral primary osteoarthritis of knee; Z96.651 Presence of right artificial knee joint | CPT/HCPCS: 73560; 73565 ==

== ENCOUNTER → 2020-10-19 09:02 | Outpatient (BNVA) | payer MEDICARE, SELFPAY | PROVIDERS: PCP Family Medicine; Visit Provider Specialist | DX: M25.561 Pain in right knee (principal); M17.0 Bilateral primary osteoarthritis of knee; Z96.651 Presence of right artificial knee joint; M17.11 Unilateral primary osteoarthritis, right knee | CPT/HCPCS: 73560; 73565 ==

== ENCOUNTER → 2020-10-26 14:16 | Outpatient (BNVA) | payer MEDICARE, SELFPAY | PROVIDERS: PCP Family Medicine; Visit Provider Nurse Practitioner Family | DX: I25.10 Atherosclerotic heart disease of native coronary artery without angina pectoris (principal); I50.9 Heart failure, unspecified | CPT/HCPCS: 80048; 82306; 83880; 84484 ==

== ENCOUNTER 2020-11-15 07:34 | Outpatient (CLI) | payer MEDICARE, SELFPAY ==
[2020-11-15 07:58] VITALS: BMI 34.0
--- NOTE | 2020-11-15 07:59 | ECG_ITS ---
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 Interpretive Statements Lexiscan/sestamibi/sestamibi stress test lung unchanged pre/post procedure; Intraprocedure shortess of breath; Symptoms resoled by discharge PROCEDURE: At the baseline, the EKG revealed sinus bradycardia with a rate of 56 bpm. Nonspecific T wave changes. The baseline blood pressure was 156/75 mm Hg with a heart rate of 56 beats/min. Lexiscan was infused over a period of 20 seconds. A total of 0.4 milligrams of Lexiscan was infused. The stress phase was continued for a total of 5 minutes. Heart rate at the end of the stress phase was 69 with a blood pressure 158/73. The EKG at the peak infusion revealed some nonspecific ST changes Sestamibi was injected 20 seconds after the Lexiscan infusion. Blood pressure at the end of the recovery phase was 152/72 with a heart rate of 73 per minute. CONCLUSION: 1. Nonspecific EKG changes with the LexiScan infusion 2. No LexiScan induced chest pain or cardiac arrhythmia 3. Normal blood pressure and heart rate response 4. Sestamibi/sestamibi perfusion scan pending; see separate report. Electronically Signed On 11-20-2020 8:50:46 CDT by Vilma Walden M.D. [email or web address]
--- NOTE | 2020-11-15 08:00 | NMCV_ITS ---
NM david perf SPECT r/s* [id number] Dennis Blankenship Age: 75 Gender: M : 1945 Exam Date: 11/15/2020 08:57 Ordering Phys: Christina Abbasi Technologist: ALEX Kerr Exam Location: [facility] Indications: SHORTNESS OF BREATH STRESS TEST Please see separate stress test report in [facility] for full findings IMAGE PROTOCOL Rest/Stress 1 Lexiscan Day Radiopharmaceutical Dose (mCi) Administration Site Administered by Rest: Tc-99m 11.0 IV ALEX Clarke Sestamibi Stress:Tc-99m 33.0 IV Sestamibi Rest: 15-Nov-2020 60 Discovery 630 Stress: 15-Nov-2020 30 Discovery 630 0.4mg Lexiscan. Supine position only as patient was unable to lay prone. SPECT RESULTS Technical Quality: Excellent Raw Data Analysis: Normal Image Corrections: No attenuation or motion correction applied Summed Stress Score: 2 Summed Rest Score: 3 Summed Difference Score: 0 PERFUSION FINDINGS Medium-sized area of fixed perfusion but noted in basal to mid inferior and inferolateral wall suggestive of old myocardial infarction versus scarring. FUNCTIONAL RESULTS (calculated via Gated SPECT) Stress Image LV EF (%): 73 Stress EDV (mL):93 TID: 1.21 Stress ESV (mL):25 Rest Image LV EF (%): 73 FUNCTIONAL FINDINGS: There is normal left ventricular systolic function. IMPRESSIONS Myocardial perfusion imaging is normal. Inferolateral fixed perfusion defect could be artifact however cannot rule out old myocardial infarction. TID ratio is elevated 1.2 which could be secondary to left ventricle hypertrophy/subendocardial ischemia in the absence of other parameters. EKG segment will be documented separately overall the study is negative for ischemia Faiza Melendez MD (Electronically Signed) Final Date: 15 November 2020 18:35 S
[2020-11-15] MEDS: regadenoson 0.4 Mg/5 ml Syringe IVP (09:40)
[2020-11-15 09:41] VITALS: BP 152/72; PULSE 76
== END 2020-11-15 07:35 | disposition home or self-care (01) ==
LOC: CDL 07:36
PROVIDERS: PCP Family Medicine; Visit Provider Nurse Practitioner Family
DX: I20.9 Angina pectoris, unspecified (principal); R06.02 Shortness of breath
CPT/HCPCS: 78452; 93017; A9500; J2785

== ENCOUNTER → 2020-12-14 09:56 | Outpatient (BNVA) | payer MEDICARE, SELFPAY | PROVIDERS: PCP Family Medicine; Referring Provider Internal Medicine; Visit Provider Internal Medicine | DX: Z01.812 Encounter for preprocedural laboratory examination (principal); I50.9 Heart failure, unspecified; Z20.822 Contact with and (suspected) exposure to COVID-19 | CPT/HCPCS: 80048; 85025; 85610; 87635 ==

== ENCOUNTER 2020-12-20 05:55 | Outpatient (CLI) | payer MEDICARE, SELFPAY ==
[2020-12-20] VITALS (50 sets, daily range): BP systolic 123–177; BP diastolic 53–119; PULSE 56–95; RESP 16–24; TEMP 36.6; O2SAT 90–97; BMI 34.1
--- NOTE | 2020-12-20 06:00 | XACV_ITS ---
Exam Room: 2 Ht: 175 cm Wt: 105 kg BSA: 2.30 m2 Gender: Male : 1945 Exam Priority: Routine Procedure(s): Procedure Description: Diagnostic procedure Procedure Description: PCI procedure Procedure Description: Coronary IVUS Procedure Description: Drug Eluting Coronary Stent Procedure Description: PTCA Procedure Description: Miscellaneous Procedure Description: ACT Procedure Description: Coronary Angiography Procedure Description: Pressure Wire Diagnostic Cath Status: Elective Diagnostic Findings * Left Anterior Descending has mild to moderate diffuse disease. Has patent stents. * Distal Circumflex: severe 90% stenosis, IRENA: 3 flow. Diffusely diseased vessel. * Ramus artery has no significant disease. * Left Main has no disease. * Proximal Right Coronary Artery: obstructive 70% stenosis, IRENA: 3 flow. * Second Obtuse Marginal Branch Segment: severe 90% stenosis, IRENA: 3 flow. * Coronary angiography shows right dominance. PCI Status: Elective PCI Indication: Other Interventional Findings * Indication: Worsening angina. * Procedure details: We engaged RCA with a JR4 guide catheter. IV heparin was administered to maintain an ACT above 250 seconds. After zeroing and equalizing the pressure wire, we advanced pressure origin to the distal vessel. FFR value of 0.79 was obtained with IV adenosine infusion. 2.5 x 12 mm semicompliant balloon was used to predilate the stenosis in the proximal RCA. IVUS was used to size the stent. This was followed by placement of 3.0 x 34 mm resolute [place] drug-eluting stent. We postdilated the proximal part of stent with 3.5 x 8 mm NC balloon. At this time final angiogram was performed that showed excellent stent expansion, IRENA-3 flow and no residual stenosis. Guidewire and guide catheter were removed. Patient left the Admission Discharge Rn in a stable condition. * Proximal Right Coronary Artery: 70% stenosis treated with a AB TREK 2.50X12 RX BALLOON, MDT R DAPHNIE 3.0X34 VILMA, MDT NC EUPHORA RX 3.10A79PI BALLOON, and MDT NC EUPHORA RX 3.17X27SF BALLOON. 0% residual stenosis, IRENA: 3 flow. Conclusions 1. Severe proximal RCA stenosis s/p PCI with VILMA x1. Severity of proximal RCA stenosis confirmed with FFR which was ischemic with a value of 0.79. 2. Severe distal left circumflex artery stenosis and severe OM 2 stenosis. 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 Given distal disease that is diffuse, we have decided to treat medically at this time. In case patient continues having chest pain in future, PCI of these vessels can be attempted. 3. Proximal Right Coronary Artery was treated with a Balloon, Drug Eluting Stent, Balloon, and Balloon. Recommendations * Continue aspirin Plavix for at least 1 year. * High intensity statin therapy. * If patient continues having anginal symptoms, PCI of distal left circumflex artery and OM 2 can be considered. * Outpatient cardiology follow-up in 4 weeks. Interventional RX Recommendation: PCI w/o planned CABG Diagnostic RX Recommendation: PCI w/o planned CABG Pressures Phase:Rest AO : 146 / 67 ( 100 ) @ 5:59:00 AM 186 / 78 ( 123 ) @ 6:29:00 AM 175 / 84 ( 121 ) @ 7:09:00 AM 134 / 84 ( 107 ) @ 7:22:00 AM Clinical Evaluation EBL: 5mL-10mL Procedural Details Procedure Consent Obtained. Admit Source: Out Patient. Pre-Procedure Time Out. Identified patient by full name and date of as verbalized by the patient/guarantor. Does the consent match the physician's order: Yes. Accurate & Complete Informed Consent: Yes. Inpatient/Outpatient History & Physical on Chart: Yes. If H&P is completed, is and addenduem needed: no; If yes, is the addendum complete: N/A. Visualize and Verify Site with Patient/Guarantor: N/A. Relevant Radiology Images available: N/A. Pre-op teaching completed and patient verbalized understanding. The risks, benefits, and alternatives of sedation and/or procedure were discussed by physician. The patient agrees to continue. Procedure started. [facility] Clinical Fraility Score: 3: Managing Well. Admission Discharge Rn Indications: New Onset Angina. Chest Pain Symptom Assessment: Atypical Angina. Correct patient, site and procedure confirmed by cath team. PERRLA. 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 Lungs clear x 5 lobes. IV Site on Arrival: 20 gauge in the right anticubital. Pre Procedural Pulses: bilateral dorsalis pedis was 2+. Pre Procedural Pulses: bilateral radial was 3+. Oxygen started at 2liters/min via nasal canula. right radial was prepped with chloroprep then draped in the usual sterile fashion. right groin was prepped with chloroprep then draped in the usual sterile fashion. Physician notified. Baseline sample Acquired. HR: 95 BPM. Physician arrived. Physician scrubbed in. Immediate Pre-Procedure Time Out. Correct Patient: Yes; Correct Procedure: Yes; Correct Site: Yes; Correct Patient Position: Yes; Correct Supplies: Yes; Dried Flammable Prep: Yes; Blood Products Available: N/A;. Lidocaine 1% infiltrated to the right radial. Arterial access obtained. A 5 swazi TIG catheter in over wire. Multiple views taken of left coronary artery. Catheter redirected to the RCA. Inventory is TR Glidewire Angled Stiff Shaft .035 260cm. Catheter out. A 5 swazi JR4 catheter in over wire. Multiple views taken of right coronary artery. Catheter out. 6 swazi JR 4 guide catheter was inserted over the wire. Side port of sheath attached to Normal Saline flush at KVO to maintain patency. ACT drawn. Results 169 seconds. Therapeutic limits - pre-heparin administration 90-150 seconds and monitoring heparin during a vascular procedure >250 seconds. Guide catheter out. Vital chart was stopped. Procedure started. 6 swazi JR 4 guide catheter was inserted over the wire. FFR repositioned to prox RCA. An FFR value of 0.79 was obtained for a lesion located at Prox RCA. FFR Wire out. ACT drawn. Results 220 seconds. Therapeutic limits - pre-heparin administration 90-150 seconds and monitoring heparin during a vascular procedure >250 seconds. Inventory is TR 180cm Runthrough NS extra floppy 0.014 wire. IVUS catheter inserted to Prox RCA. IVUS Measurements obtained. IVUS catheter removed. Balloon inserted to lesion in the prox RCA. Inflation number : 1 A AB TREK 2.50X12 RX BALLOON was prepped and advanced across the Prox RCA , then inflated to 8 [place] for 0:10 seconds. Inflation number: 2 The AB TREK 2.50X12 RX BALLOON was reinflated across the Prox RCA, to 8 [place] for 0:18 seconds. Inflation number: 3 The AB TREK 2.50X12 RX BALLOON was reinflated across the Prox RCA, to 12 [place] for 0:16 seconds. Inflation number: 4 The AB TREK 2.50X12 RX BALLOON was reinflated across the Prox RCA, to 12 [place] for 0:16 seconds. Inflation number: 5 The AB TREK 2.50X12 RX BALLOON was reinflated across the Prox RCA, to 12 [place] for 0:16 seconds. Balloon out. Results checked. Guideliner inserted to prox RCA. Stent inserted to lesion in the prox RCA. Inflation Number : 6 A MDT R DAPHNIE 3.0X34 VILMA -Lot Number# [id number] exp 08/21/2023 was prepped and advanced across the Prox RCA. The stent was deployed at 12 [place] for 0:25 seconds. Stent balloon out over wire. Results checked. Balloon inserted to lesion in the prox RCA. Inflation number : 7 A MDT NC EUPHORA RX 3.49M20EH BALLOON was prepped and advanced across the Prox RCA , then inflated to 14 [place] for 0:23 seconds. Inflation number: 8 The MDT NC EUPHORA RX 3.79P21NB BALLOON was reinflated across the Prox RCA, to 16 [place] for 0:13 seconds. Inflation number: 9 The MDT NC EUPHORA RX 3.69U04LQ BALLOON was reinflated across the Prox RCA, to 18 [place] for 0:17 seconds. Balloon out. IVUS catheter inserted to Prox RCA. Results checked with IVUS catheter. IVUS catheter removed. Balloon inserted to lesion in the prox RCA. Inflation number : 10 A MDT NC EUPHORA RX 3.37V37UQ BALLOON was prepped and advanced across the Prox RCA , then inflated to 18 [place] for 0:26 seconds. Inflation number: 11 The MDT NC EUPHORA RX 3.53H10JC BALLOON was reinflated across the Prox RCA, to 16 [place] for 0:11 seconds. Balloon out. Results checked. Wire out. ACT drawn. Results 237 seconds. Therapeutic limits - pre-heparin administration 90-150 seconds and monitoring heparin during a vascular procedure >250 seconds. Guide catheter out. A TR Band was successful obtaining hemostatsis at the Right Radial artery insertion site. Post Procedure: Pulses reassessed and unchanged. PERRLA. 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 No VTE prophylaxis required. Medication's Wasted: Lidocaine 1% = 18 mL. Medication's Wasted: Nitro = 49.6 mg. Medication's Wasted: Other =Adenosine 69 mL. Total IV fluids: 142 mL. PCI Indication: CAD (without ischemic symptoms). Post-op diagnosis: Obstructive CAD. Complications: none. Estimated blood loss: 5mL-10mL. Procedure completed. Patient transferred by wheelchair to [facility]. Vital chart was stopped. Access Site Site: Right Radial artery Sheath Size: 6 Fr Hemostasis Method: TR Band Hemostasis Success: Successful Procedure Medications Start: 7:40 AM Stop: 7:40 AM Medication: Versed Amount: 1 mg Route: I.V. Start: 7:41 AM Stop: 7:41 AM Medication: Fentanyl Amount: 50 mcg Route: I.V. Start: 7:49 AM Stop: 7:49 AM Medication: Nitrogylcerin Amount: 200 mcg Route: I.A. Start: 7:51 AM Stop: 7:51 AM Medication: Heparin Amount: 5000 units Route: I.V. Start: 7:59 AM Stop: 7:59 AM Medication: Versed Amount: 1 mg Route: I.V. Start: 7:59 AM Stop: 7:59 AM Medication: Fentanyl Amount: 50 mcg Route: I.V. Start: 8:24 AM Stop: 8:24 AM Medication: Heparin Amount: 5000 units Route: I.V. Start: 8:34 AM Stop: 8:34 AM Medication: Adenosine (Adenocard) Amount: 882 ml/hr Route: I.V. bolus Start: 8:39 AM Stop: 8:39 AM Medication: Versed Amount: 1 mg Route: I.V. Start: 8:40 AM Stop: 8:40 AM Medication: Heparin Amount: 4000 units Route: I.V. Start: 9:02 AM Stop: 9:02 AM Medication: Heparin Amount: 1000 units Route: I.V. Start: 9:18 AM Stop: 9:18 AM Medication: Versed Amount: 1 mg Route: I.V. Start: 9:21 AM Stop: 9:21 AM Medication: Nitrogylcerin Amount: 200 mcg Route: I.A. Start: 9:27 AM Stop: 9:27 AM Medication: Heparin Amount: 1000 units Route: I.V. Start: 9:28 AM Stop: 9:28 AM Medication: Plavix Amount: 600 mg Route: P.O. I, the attending physician, have reviewed and verified all procedure medications. Yes, all medications given per verbal order History/Risk Factors Hypertension: Yes Dyslipidemia: Yes Peripheral Arterial Disease (PAD): No Myocardial Infarction (AK): No Obesity: No Prior Interventions PCI: Yes CABG: No Valve Surgery: No Report Signatures Finalized by Hill Vigil MD on 02/16/2021 09:49 AM
[2020-12-20] MEDS: diphenhydrAMINE 50 mg Capsule PO (06:47)
--- NOTE | 2020-12-20 07:34 | W.PM.OPSFHP ---
Same Day Surgery H&P Indication for Procedure/HPI DATE OF PROCEDURE: December 20, 2020 CHIEF COMPLAINT/INDICATIONFOR SURGICAL PROCEDURE: Worsening Chest pain/abnormal stress test PREOP DIAGNOSIS: Worsening chest pain/abnormal stress test PLANNED PROCEDRUE: Operation Date: 12/20/20 07:00 Proposed Procedures p Cardiac Catheterization(Left) - Hill Vigil M.D Possible percutaneous coronary intervention 75 years old has a history of coronary disease with previous intervention. He has stents in the proximal and mid LAD and proximal circumflex and a diagonal branch was angioplastied in 2017. This was all done in [place]. Patient has been having worsening chest pain symptoms that at times are several times a day. He had a stress test that was abnormal. Also has shortness of breath. ROS CONSTITUTIONAL: No fever chills weight loss or gain or night sweats. [] HEENT: Normocephalic, atraumatic.[] RESPIRATORY: No cough, sputum, hemoptysis or wheezing.[] CARDIOVASCULAR: No shortness of breath, chest pain, PND, orthopnea, lower extremity edema, presyncope or syncope. [] GI: no nausea vomiting diarrhea. [] FILTER WASHER AND PRESSER: No numbness, tingling, weakness or loss of function in any part of the body. [] MUSCULOSKELETAL: No knee or joint pain or rashes. [] Medications/Allergies* Home Medications Medication Instructions Recorded Confirmed Type allopurinol 300 mg tablet 300 mg PO DAILY 03/24/19 12/19/20 History aspirin 81 mg tablet,delayed 81 mg PO DAILY 03/24/19 12/19/20 History release cholecalciferol (vitamin D3) 25 1,000 unit PO DAILY 03/24/19 12/19/20 History mcg (1,000 unit) capsule losartan 100 mg tablet 100 mg PO DAILY 03/24/19 12/20/20 History metformin 1,000 mg tablet 1,000 mg PO BID 03/24/19 12/19/20 History multivitamin with iron 1 tab PO DAILY 03/24/19 12/19/20 History atenolol 50 mg tablet 25 mg PO DAILY tab 05/27/19 12/19/20 History insulin detemir U-100 100 unit/mL 60 unit SUBCUT DAILY ml 10/10/20 12/19/20 History (3 mL) subcutaneous pen Allergies/Adverse Reactions Allergy/AdvReac Type Severity Reaction Status Date / Time amlodipine Allergy swelling Verified 11/06/20 13:53 fenofibrate Allergy muscle pain Verified 11/06/20 13:53 lisinopril Allergy cough Verified 11/06/20 13:53 Zuupjbd-PYC-ZgU Reductase Allergy ADV-Weaknes Verified 11/06/20 13:53 Inhibitor s [Kejypra-Sja-Pbq Reductase Inhibitor] Current Medications: Generic Name Dose Route Start Last Admin Trade Name Freq PRN Reason Stop Dose Admin Sodium Chloride 1,000 mls @ 50 mls/hr 12/20/20 06:00 12/20/20 06:48 Sodium Chloride 0.9% IV 12/21/20 01:59 Not Given .Q20H ONE Pertinent History/Comorbid Conditions* Medical History (Updated 10/26/20 @ 15:19 by ALICE Tompkins) Atherosclerosis of [place] coronary artery of [place] heart without angina pectoris CHF (congestive heart failure) GERD (gastroesophageal reflux disease) Hyperlipidemia Hypertension Statin intolerance Type 2 diabetes mellitus with hyperglycemia, with long-term current use of insulin Surgical History (Updated 10/20/20 @ 16:46 by Sherrie Chen MD) History of total right knee replacement Performed on 09/07/[address] Chen Stented coronary artery Family History (Updated 03/24/19 @ 09:29 by Letha Higgins LPN) Denies family history of Diabetes CAD (coronary artery disease) Clotting disorder Dementia Hyperlipidemia Psychiatric illness Chronic kidney disease (CKD) Suicide Anesthesia complication Bleeding disorder Family history of premature coronary artery disease Lung disease Cancer Hypertension Stroke Social History Smoking and tobacco status: never smoked Alcohol intake: current Alcohol intake frequency: few times a month Household members: spouse Marital status: Current occupational status: retired Pertinent Exam Findings alert, oriented x 3, clear to auscultation bilaterally and regular rate & rhythm Conscious Sedation Assessment PATIENT ASSESSED PRIOR TO SEDATION, WITH NO CHANGE NOTED: Yes AIRWAY EVAL/ANESTHESIA PLAN: ASA III, Monitored Anesthesia, Local Anesthesia, Risks, benefits & alternatives of sedation and/or procedure discussed and Patient agrees to continue as planned Recommendations Surgery/Procedure today (Left heart cath with possible percutaneous coronary intervention) Coding Level of Care Code Acute Sign Builder Supervisor for Rosey Snow
[2020-12-20 11:35] LABS: Glucose Point of Care 224 mg/dL (70-110)
[2020-12-20] MEDS: aspirin 81 mg EC Tablet PO (11:56)
[2020-12-20] MEDS: insulin lispro 100 unit/1 mL SUBCUT ×2 (11:56→20:29)
[2020-12-20 17:01] LABS: Glucose Point of Care 125 mg/dL (70-110)
--- NOTE | 2020-12-20 19:00 | PC.NURSE ---
Received bedside report from OSCAR Alexandra. Patient sitting on edge of bed watching his cell phone. Denies pain or needs presently. Patient is s/p [facility] with right radial access. Bruising noted to site. No active bleeding or hematoma formation observed. Discussed site care with patient. Patient verbalized complete understanding. No distress observed.
--- NOTE | 2020-12-20 20:08 | PC.NURSE ---
received from cardiac laborer filter plant at 0940 via w/c.report received.pt is alert and awake and oriented x 4.denies pain at present.sr on monitor.right wrist with tr bnd on and inflated.concern by laborer filter plant regarding sewlling proximal to tr band.no redness,bruising noted.site is soft to touch.swelling diameter marked by laborer filter plant staff filiberto.will continue to closely observe.instructed in activity restrictions s/p radial artery procedure...and instructed to notify staff for any swelling,pain,numbness..or for any concerns at all.pt verb understanding of instructions.
--- NOTE | 2020-12-20 20:13 | PC.NURSE ---
at 1040...right wrist swelling at area proxima to tr band noted to be increasing.2nd tr band applied and inflated with 10 cc of air.no bruising or discoloration noted.dr mehul victoria.
--- NOTE | 2020-12-20 20:15 | PC.NURSE ---
at 1300 2nd tr band had slowly been deflated and removed.at 1500. original tr band ,after slowly deflating,was removed.small amt of bruising noted at proximal and distal edges of tr band.whole area soft to touch.site dressed with 2x2 gauze and secured with biocclusive drsg.dr carver aware of bruising.instructed pt in activity restrictions s/p tr band removal...and instructed to notify staff for any bleeding,pain ,numbness, increase in bleeding..or for any concerns at all.pt verb understanding of instructions
[2020-12-20] MEDS: temazepam 15 mg Capsule PO (20:28)
[2020-12-20 23:14] LABS: Glucose Point of Care 201 mg/dL (70-110)
[2020-12-21] VITALS (12 sets, daily range): BP systolic 127–182; BP diastolic 53–91; PULSE 56–94; RESP 20; TEMP 36.6; O2SAT 88–93
[2020-12-21 05:01] LABS: Basophils # 0.1 10^3/uL (0.0-0.1); Basophils % 0.8 %; Eosinophils # 0.2 10^3/uL (0.0-0.8); Eosinophils % 2.5 %; Hematocrit 44.9 % (42.0-52.0); Hemoglobin 14.9 g/dL (11.7-16.6); Lymphocytes # 1.9 10^3/uL (0.8-4.8); Lymphocytes % 30.4 %; Mean Corpuscular HGB Conc 33.2 g/dL (30.0-36.0); Mean Corpuscular Hemoglobin 31.2 pg (28.0-34.0); Mean Corpuscular Volume 94.1 fl (80-94); Mean Platelet Volume 9.7 fL (7.4-10.4); Monocytes # 0.6 10^3/uL (0.2-0.9); Monocytes % 10.2 %; Neutrophils # 3.48 10^3/uL (1.8-7.7); Neutrophils % 55.5 %; Nucleated Red Blood Cells % 0 %; Platelet Count 239 10^3/cmm (130-400); Red Blood Count 4.77 10^6/uL (4.1-5.3); Red Cell Distribution Width 14.6 % (12.1-15.1); White Blood Count 6.3 10^3/uL (4.0-10.0)
[2020-12-21 05:20] LABS: Anion Gap 13.7 (5-19); Blood Urea Nitrogen 19 mg/dL (8-23); Carbon Dioxide 25 mmol/L (22-29); Chloride 104 mmol/L (98-107); Glucose 155 mg/dL (65-115); Osmolality Calculated 293 mOsm/kg (285-295); Potassium 3.7 mmol/L (3.5-5.1); Sodium 139 mmol/L (136-145)
--- NOTE | 2020-12-21 06:00 | PC.NURSE ---
Shift Note Frequent safety and comfort rounds continue. Orders and/or nursing care completed as indicated. Patient monitored for response to intervention and treatment(s). Education provided includes post heart catheterization site care and restrictions. Patient verbalized complete understanding. Dressing to right wrist remains c,d,i with no s/s of bleeding or hematoma formation observed. Bruising remains stable to right wrist. Patient denies pain or needs. Ready to go home . No distress observed. Will continue to monitor.
[2020-12-21 06:19] LABS: Glucose Point of Care 183 mg/dL (70-110)
--- NOTE | 2020-12-21 08:12 | P.DS_ITS ---
Discharge Providers Date of Admission: 12/20/2020 Date of Discharge: December 21, 2020 Attending Provider at Admission: Hill Vigil Attending Provider at Discharge: Hill Vigil M.D Primary Care Provider: Maria C Ramachandran DO Reason for Visit Reason for Visit: 23620 i25.10 Brief History: 75 years old has a history of coronary disease with previous intervention. He has stents in the proximal and mid LAD and proximal circumflex and a diagonal branch was angioplastied in 2017. This was all done in [place]. Patient has been having worsening chest pain symptoms that at times are several times a day. He had a stress test that was abnormal. Also has shortness of breath. Hospital Course Hospital Course 75 years old has a history of coronary disease with previous intervention. He has stents in the proximal and mid LAD and proximal circumflex and a diagonal branch was angioplastied in 2017. This was all done in [place]. Patient has been having worsening chest pain symptoms that at times are several times a day. He had a stress test that was abnormal. Also has shortness of breath. Patient had severe proximal RCA stenosis that was treated with VILMA x1 after FFR confirmed ischemia. 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 These were diffuse stenoses. Given stress test showed fixed defect in this territory, we decided to treat it medically. If he continues having chest pains in future, PCI of these lesions can be performed. Patient stayed in the hospital overnight and was stable for discharge today. Physical Exam Narrative: EXAM NARRATIVE: GENERAL: Patient is alert, awake and oriented x3. [] NECK: No jugular vein distension. [] HEENT: No cyanosis. No icterus. No pallor. [] HEART: Regular S1 and S2. No murmur, rub or gallop. [] LUNGS: Clear to auscultate bilaterally. [] ABDOMEN: Soft, nontender and nondistended. Positive bowel sounds. No guarding, rebound or tenderness. [] CENTRAL NERVOUS SYSTEM: Grossly nonfocal. [] EXTREMITIES: Lower extremities with no edema bilaterally. Pulses palpable in the lower extremities, both dorsalis pedis and posterior tibial. 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 Routin e Exams 12/20/20 06:00 Ordered Labs from last 24 hours 12/21/20 12/21/20 12/21/20 06:15 04:45 04:45 WBC 6.3 RBC 4.77 Hgb 14.9 Hct 44.9 MCV 94.1 H MCH 31.2 MCHC 33.2 RDW 14.6 Plt Count 239 MPV 9.7 Neut % (Auto) 55.5 Lymph % (Auto) 30.4 [place] % (Auto) 10.2 Eos % (Auto) 2.5 Baso % (Auto) 0.8 Neut # (Auto) 3.48 Lymph # (Auto) 1.9 [place] # (Auto) 0.6 Eos # (Auto) 0.2 Baso # (Auto) 0.1 Nucleated RBC % (a uto) 0 Nucleated RBCs # 0.0 Sodium 139 Potassium 3.7 Chloride 104 Carbon Dioxide 25 Anion Gap 13.7 BUN 19 Creatinine 0.8 GFR Calculation Not Reportable Glucose 155 H POC Glucose 183 H Calculated Osmolal ity 293 Calcium 9.0 12/20/20 12/20/20 12/20/20 19:37 16:54 11:23 WBC RBC Hgb Hct MCV MCH MCHC RDW Plt Count MPV Neut % (Auto) Lymph % (Auto) [place] % (Auto) Eos % (Auto) Baso % (Auto) Neut # (Auto) Lymph # (Auto) [place] # (Auto) Eos # (Auto) Baso # (Auto) Nucleated RBC % (a uto) Nucleated RBCs # Sodium Potassium Chloride Carbon Dioxide Anion Gap BUN Creatinine GFR Calculation Glucose POC Glucose 201 H 125 H 224 H Calculated Osmolal ity Calcium Vitals: Last Vital Signs Temp 98 F 12/21/20 03:27 Pulse 77 12/21/20 05:27 Resp 20 H 12/21/20 03:27 BP 144/83 12/21/20 03:27 Pulse Ox 91 12/21/20 03:27 Discharge Plan Discharge Patient Disposition: Home Prescriptions: New clopidogrel 75 mg Tablet 75 mg PO DAILY Qty: 90 RF: 3 Continued losartan 100 mg tablet 100 mg PO DAILY RF: 0 allopurinol 300 mg tablet 300 mg PO DAILY RF: 0 multivitamin with iron 1 tab PO DAILY RF: 0 cholecalciferol (vitamin D3) 25 mcg (1,000 unit) capsule 1,000 unit PO DAILY RF: 0 aspirin 81 mg tablet,delayed release (DR/EC) 81 mg PO DAILY RF: 0 Hold Instructions: Resume on 10/09/19. Resume after full strength aspirin for 30 days is completed atenolol 50 mg tablet 25 mg PO DAILY RF: 0 Jardiance 25 mg tablet 25 mg PO DAILY Qty: 90 RF: 3 chlorthalidone 25 mg tablet 25 mg PO DAILY Qty: 90 RF: 3 ezetimibe [Zetia] 10 mg tablet 10 mg PO DAILY Qty: 90 RF: 3 Levemir FlexTouch U-100 Insuln 100 unit/mL (3 mL) insulin pen 60 unit SUBCUT DAILY RF: 0 (DME) Diabetic Shoes Qty: 1 RF: 0 ketoconazole 2 % cream 1 applic topical BID Qty: 30 RF: 1 omega-3 acid ethyl esters [Lovaza] 1 gram capsule 2 cap PO BID Qty: 360 RF: 3 Changed isosorbide mononitrate 30 mg tablet extended release 24 hr 30 mg PO BID Qty: 90 RF: 3 Held metformin 1,000 mg tablet 1,000 mg PO BID RF: 0 Hold Instructions: Resume on 12/23/20. Discharge Orders: Discharge Order (Routine); Ordered 12/21/20 Ordered By: Hill Vigil Referrals: Christina Abbasi FNP [Nurse Practitioner] - 12/29/20 9:00 am (You have a post procedure followup with ALICE Tompkins at [facility] on December 29 at 9:00am) Diet: Cardiac Activity: Increase activity as tolerated Patient Instructions: Clopidogrel (By mouth) (Plavix), Coronary Angioplasty (DC), Heart Healthy Diet (DC), Chest Pain Stoplight, Post Angiogram Home Care Instructions Activity Restrictions/Additional Instructions: Please do not lift more than 5 pounds of weight for the next 5 days Discharge Date/Time: 12/21/20 09:50 Discharge Attestations Time Spent in Discharge Care*: greater than 30 min Quality Metrics Clinical Quality Measures During this hospital stay, did patient experience: None Coding Level of Care Code Acute Chg FW DC note
[2020-12-21] MEDS: clopidogrel 75 mg Tablet PO (08:19)
[2020-12-21] MEDS: aspirin 81 mg EC Tablet PO (08:19)
[2020-12-21] MEDS: insulin lispro 100 unit/1 mL SUBCUT (08:26)
[2020-12-21] MEDS: atenolol 50 mg Tablet 25 MG PO (08:43)
[2020-12-21] MEDS: chlorthalidone 25 mg Tablet PO (09:01)
--- NOTE | 2020-12-21 09:50 | PC.NURSE ---
Discharge Note Patient discharged to Home via Private vehicle accompanied by Daughter. Discharge instructions reviewed with patient and/or traffic representative. Mobile pharmacy medications and/or prescriptions provided. Belongings/home medications returned.
== END 2020-12-21 09:50 | disposition home or self-care (01) ==
LOC: CCL 06:00 → CSU 08:46
PROVIDERS: PCP Family Medicine; Visit Provider Internal Medicine
DX: R07.9 Chest pain, unspecified (principal); R94.39 Abnormal result of other cardiovascular function study; I25.10 Atherosclerotic heart disease of native coronary artery without angina pectoris; Z95.5 Presence of coronary angioplasty implant and graft; R06.02 Shortness of breath; I25.2 Old myocardial infarction; I10 Essential (primary) hypertension
CPT/HCPCS: 36415; 36416; 80048; 82962; 85025; 85347; 92978; 93571; 96372; C1725; C1753; C1769; C1874; C1887; C1894; C9600; J0153; J1644; J1815; J2250; J3010; J3490; J7030; Q0163; Q9967

== ENCOUNTER → 2020-12-29 09:30 | Outpatient (BNVA) | payer MEDICARE, SELFPAY | PROVIDERS: PCP Family Medicine; Visit Provider Nurse Practitioner Family | DX: I25.10 Atherosclerotic heart disease of native coronary artery without angina pectoris (principal) | CPT/HCPCS: 80048 ==